=== PATIENT | male | born 1935 | race Caucasian/White ===

== ENCOUNTER 2016-09-16 15:45 | Outpatient (CLI) | payer MEDICARE ==
[2013-08-28 10:17] VITALS: BP 122/60
[2016-09-16 16:16] LABS: BASOPHILS % 0.3 (0.0-1.5); EOSINOPHILS % 1.5 % (0.0-6.8); MEAN CORPUSCULAR HEMOGLOBIN 32.6 pg (28.0-34.0); MEAN CORPUSCULAR VOLUME 95.1 fl (80.0-100.0); MONOCYTES % 11.9 % (0.0-11.0); NEUTROPHILS # 2.6 # k/uL (1.4-7.7)
[2016-09-16 16:46] LABS: eGFR (African) > 60; eGFR (Non-African) > 60
--- NOTE | 2016-09-17 05:11 | Diagnostic Imaging Report ---
ANANT KWONG [facility] [address] [facility].[address] [address] Report Submission Date: September 16, 2016 4:21:06 PM CDT Patient Study Name: JEANNIE MAXWELL Date: September 16, 2016 3:51:49 PM CDT Modality Type: CR Gender: M Description: CHEST : 37 Institution: [facility] Physician: ANANT KWONG 2 views of the chest History: DYSPNEA FOR ABOUT 6 MONTHS Findings: Comparison: January 23, 2016 Heart is normal in size. Aortic calcification is present Patchy right basilar opacity/ atelectasis is stable. Left basilar subsegmental atelectasis Degenerativ changes of the thoracic spine are again seen with disc spacers lower thoracic spine Impression: Stable atelectasis/patchy infiltrate right lower lobe Left basilar atelectasis. No pleural effusion Electronically signed on September 16, 2016 4:21:06 PM CDT by: Marie GOMEZ
== END 2016-09-16 15:46 ==
LOC: LAB 15:45
PROVIDERS: ATTEND Family Medicine
DX: K62.89 Other specified diseases of anus and rectum (principal); R06.09 Other forms of dyspnea; E55.9 Vitamin D deficiency, unspecified; E03.9 Hypothyroidism, unspecified; R53.82 Chronic fatigue, unspecified; E78.5 Hyperlipidemia, unspecified
CPT/HCPCS: 36415; 71020; 80053; 80061; 82306; 83735; 84443; 85025

== ENCOUNTER 2017-03-01 09:32 | Outpatient (CLI) | payer MEDICARE ==
[2013-08-28 10:17] VITALS: BP 122/60
[2017-03-01] MEDS ORDERED: ALBUTEROL SULFATE 2.5 MG/3 ML AMPUL.NEB NEB ONE (09:44)
--- NOTE | 2017-03-01 13:03 | Diagnostic Imaging Report ---
ILA ESTEVES [facility] [address] [facility].[address] [address] Report Submission Date: Mar 01, 2017 11:03:28 AM CDT Patient Study Name: JEANNIE MAXWELL Date: Mar 01, 2017 10:18:19 AM CDT Modality Type: CR Gender: M Description: CHEST : 37 Institution: [facility] Physician: ILA ESTEVES Examination: PA and lateral chest. History: Evaluate lung bailey. Comparison exam: 16 Sep 2016 Findings: PA lateral chest demonstrate a normal cardiac and mediastinal silhouette. Few vascular calcifications involving the aortic arch. No focal infiltrate. No blunting of the costophrenic margins. Stable hilar vascular fullness. Osseous structures are appropriate for age. Impression: No acute pulmonary process. Electronically signed on Mar 01, 2017 11:03:28 AM CDT by: Arcadio GOMEZ
== END 2017-03-01 09:33 ==
LOC: LAB 09:32 → RAD 09:33
PROVIDERS: ATTEND Family Medicine
DX: R06.02 Shortness of breath (principal); R06.09 Other forms of dyspnea
CPT/HCPCS: 71020; 94060

== ENCOUNTER 2017-03-05 09:52 | Outpatient (CLI) | payer MEDICARE ==
[2013-08-28 10:17] VITALS: BP 122/60
--- NOTE | 2017-03-05 11:37 | Diagnostic Imaging Report ---
ANANT KWONG [facility] [address] [address] Report Submission Date: Mar 05, 2017 10:52:29 AM CDT Patient Study Name: JEANNIE MAXWELL Date: Mar 05, 2017 10:08:13 AM CDT Modality Type: US\OT Gender: M Description: LIMITED BILAT JULIAN 1-2 LVL : 37 Institution: [facility] Physician: ANANT WKONG Examination: Ultrasound arterial History: Leg discomfort Comparison exams: None available Findings: Sonographic evaluation of the lower extremity arterial system from the groin to the distal extremities bilaterally demonstrates normal waveforms. Right ankle/brachial index of 1.16. Left ankle/brachial index of 1.11. Impression No reduction to hemodynamic flow Electronically signed on Mar 05, 2017 10:52:29 AM CDT by: Arcadio GOMEZ
== END 2017-03-05 10:00 ==
LOC: RAD 09:52
PROVIDERS: ATTEND Family Medicine
DX: I73.9 Peripheral vascular disease, unspecified (principal)
CPT/HCPCS: 93922

== ENCOUNTER 2017-11-22 07:27 | Outpatient (CLI) | payer MEDICARE ==
[2013-08-28 10:17] VITALS: BP 122/60
[2017-11-22] MEDS ORDERED: ALBUTEROL SULFATE 2.5 MG/3 ML AMPUL.NEB NEB ONE (07:40)
== END 2017-11-22 10:45 ==
LOC: RT 07:27
PROVIDERS: ATTEND Internal Medicine Pulmonary Disease
DX: R06.02 Shortness of breath (principal)
CPT/HCPCS: 94060

== ENCOUNTER 2018-01-26 08:10 | Outpatient (CLI) | payer MEDICARE ==
[2013-08-28 10:17] VITALS: BP 122/60
[2018-01-26 09:39] LABS: eGFR (Non-African) > 60
== END 2018-01-26 08:11 ==
LOC: LAB 08:10
PROVIDERS: ATTEND Family Medicine
DX: E78.5 Hyperlipidemia, unspecified (principal)
CPT/HCPCS: 36415; 80053; 80061